=== PATIENT | male | born 1985 | race Caucasian/White ===

== ENCOUNTER 2019-06-02 13:41 | Emergency (ER) | payer MEDICAID ==
[~2019-06-02] VITALS: Ht 167.6 cm; Wt 83.9 kg
[2019-06-02 13:55] VITALS: BP_SYST 148
--- NOTE | 2019-06-02 14:03 | NUR ---
Patient to ER bed 8 to gown for evaluation. Side rails up. Report given to Milly BERMEO.
--- NOTE | 2019-06-02 14:05 | NUR ---
Pt brought by self , A&Ox4, pt presents to ER with lower back pain, denies trauma, ambulatory , skin pink and warm, cap refill <3, VSS.
--- NOTE | 2019-06-02 14:06 | NUR ---
Marysol Stovall [employer] at bedside examining patient
[2019-06-02] MEDS ORDERED: KETOROLAC TROMETHAMINE 60 MG/2 ML VIAL IM ONE (14:15)
[2019-06-02 15:36] VITALS: BP_SYST 142
--- NOTE | 2019-06-02 15:37 | NUR ---
Patient given written and verbal discharge instructions and verbalizes understanding. ER MD discussed with patient the results and treatment provided. Patient in stable condition. ID arm band removed. Rx of Motrin, Flexeril and Tramadol given. Patient educated on pain management and to follow up with PMD. Pain Scale 3/10 tolerable for patient . Opportunity for questions provided and answered. Medication side effect fact sheet provided.
== END 2019-06-02 15:36 | disposition home or self-care (01) ==
LOC: SED 13:41
DX: M54.17 Radiculopathy, lumbosacral region (principal); R03.0 Elevated blood-pressure reading, without diagnosis of hypertension
CPT/HCPCS: 81002; 96372; 99283; J1885